=== PATIENT | male | born 1995 | race Two or more races ===

== ENCOUNTER 2017-09-12 14:36 | Emergency (ER) | payer BC, OTHER ==
[~2017-09-12] VITALS: Ht 175.3 cm; Wt 58.7 kg
[2017-09-12 14:43] VITALS: BP 117/70
== END 2017-09-12 16:32 | disposition home or self-care (01) ==
LOC: ED 16:26
DX: S16.1XXA Strain of muscle, fascia and tendon at neck level, initial encounter (principal); S39.012A Strain of muscle, fascia and tendon of lower back, initial encounter; R07.89 Other chest pain; V49.59XA Passenger injured in collision with other motor vehicles in traffic accident, initial encounter; Y93.89 Activity, other specified; Y99.8 Other external cause status; Y92.410 Unspecified street and highway as the place of occurrence of the external cause
CPT/HCPCS: 71046; 72020; 72050; 72110; 99284